=== PATIENT | female | born 1955 | race Caucasian/White ===

== ENCOUNTER → 2017-01-25 | Outpatient (CLI) | payer BC ==
--- NOTE | 2017-01-28 10:33 | MM ---
Reason for exam: screening (asymptomatic). Last mammogram was performed 3 years and 2 months ago. History: Patient is postmenopausal. Physical Findings: A clinical breast exam by your physician is recommended on an annual basis and results should be correlated with mammographic findings. MG Screening Mammo w CAD Bilateral CC and MLO view(s) were taken. Prior study comparison: November 18, 2013, bilateral MG screening mammo w CAD. September 23, 2012, bilateral digital screening mammo w/CAD. There are scattered fibroglandular densities. There is no discrete abnormality. ASSESSMENT: Negative, BI-RAD 1 RECOMMENDATION: Routine screening mammogram of both breasts in 1 year.
== END | disposition home or self-care (01) ==
LOC: RADMAMWWP 10:11
PROVIDERS: ATTEND Obstetrics & Gynecology
DX: Z12.31 Encounter for screening mammogram for malignant neoplasm of breast (principal)

== ENCOUNTER → 2018-10-30 | Outpatient (CLI) | payer BC ==
--- NOTE | 2018-11-04 09:39 | MM ---
Reason for exam: screening (asymptomatic). Last mammogram was performed 1 year and 9 months ago. History: Patient is postmenopausal. Physical Findings: A clinical breast exam by your physician is recommended on an annual basis and results should be correlated with mammographic findings. MG Screening Mammo w CAD Bilateral CC and MLO view(s) were taken. Prior study comparison: January 25, 2017, bilateral MG screening mammo w CAD. November 18, 2013, bilateral MG screening mammo w CAD. The breast tissue is heterogeneously dense. This may lower the sensitivity of mammography. No suspicious abnormality. No significant changes when compared with prior studies. ASSESSMENT: Negative, BI-RAD 1 RECOMMENDATION: Routine screening mammogram of both breasts in 1 year.
== END | disposition home or self-care (01) ==
LOC: RADMAMWWP 13:47
PROVIDERS: ATTEND Obstetrics & Gynecology
DX: Z12.31 Encounter for screening mammogram for malignant neoplasm of breast (principal)
CPT/HCPCS: 77067

== ENCOUNTER → 2020-05-19 | Outpatient (CLI) | payer MEDICARE ==
--- NOTE | 2020-05-20 14:50 | MM ---
Reason for exam: screening (asymptomatic). Last mammogram was performed 1 year and 7 months ago. History: Patient is postmenopausal. Took hormonal contraceptives for 30 years. Physical Findings: A clinical breast exam by your physician is recommended on an annual basis and results should be correlated with mammographic findings. MG 3D Screening Mammo W/Cad Bilateral CC and MLO view(s) were taken. Prior study comparison: October 30, 2018, bilateral MG screening mammo w CAD. January 25, 2017, bilateral MG screening mammo w CAD. There are scattered fibroglandular densities. There is no discrete abnormality. ASSESSMENT: Negative, BI-RAD 1 RECOMMENDATION: Routine screening mammogram of both breasts in 1 year.
== END | disposition home or self-care (01) ==
LOC: RADMAMWWP 11:12
PROVIDERS: ATTEND Internal Medicine Geriatric Medicine
DX: Z12.31 Encounter for screening mammogram for malignant neoplasm of breast (principal)
CPT/HCPCS: 77063; 77067

== ENCOUNTER → 2021-12-12 | Outpatient (CLI) | payer MEDICARE ==
--- NOTE | 2021-12-13 19:47 | MM ---
Reason for Exam: Screening (asymptomatic). Last mammogram was performed 1 year(s) and 7 month(s) ago. Patient History: Menarche at age 10. First Full-Term at age 21. Postmenopausal. Patient used Hormonal Contraceptives for 30 years. Risk Values: Bernarda 5 year model risk: 1.7%. NCI Lifetime model risk: 5.7%. Prior Study Comparison: 01/25/2017 Bilateral Screening Mammogram, [facility]. 10/30/2018 Bilateral Screening Mammogram, [facility]. 05/19/2020 Bilateral Screening Mammogram, [facility]. Tissue Density: There are scattered fibroglandular densities. Findings: Analyzed By CAD. There is no suspicious group of microcalcifications or new suspicious mass in either breast. Overall Assessment: Negative, BI-RAD 1 Management: Screening Mammogram of both breasts in 1 year. 1. Patient should continue monthly self breast exams. 2. A clinical breast exam by your physician is recommended on an annual basis. 3. This exam should not preclude additional follow-up of suspicious palpable abnormalities. Electronically signed and approved by: Fredy Moncada M.D. Radiologist
== END | disposition home or self-care (01) ==
LOC: RADMAMWWP 09:25
PROVIDERS: ATTEND Internal Medicine
DX: Z12.31 Encounter for screening mammogram for malignant neoplasm of breast (principal); Z78.0 Asymptomatic menopausal state
CPT/HCPCS: 77063; 77067

== ENCOUNTER → 2022-11-15 | Outpatient (CLI) | payer MEDICARE ==
--- NOTE | 2022-11-15 11:28 | XR ---
EXAMINATION TYPE: XR ankle complete RT DATE OF EXAM: 11/15/2022 COMPARISON: NONE HISTORY: Pain FINDINGS: Three views of the ankle demonstrate the ankle mortise to be intact and symmetric. The joint spaces are preserved. The osseous structures are intact. IMPRESSION: 1. No definite acute fracture or dislocation, if symptoms persist follow-up study in 7 to 10 days wou ld be suggested.
--- NOTE | 2022-11-15 11:30 | XR ---
EXAMINATION TYPE: XR foot complete RT DATE OF EXAM: 11/15/2022 COMPARISON: NONE HISTORY: Pain TECHNIQUE: Three views are submitted. FINDINGS: The osseous structures are intact. There is no acute fracture or dislocation. Moderate first MTP j oint arthropathy with tiny spur. Small calcaneal spur.. IMPRESSION: 1. Moderate first MTP joint arthropathy.
== END | disposition home or self-care (01) ==
LOC: RADXRMAIN 10:23
PROVIDERS: ATTEND Internal Medicine
DX: M19.071 Primary osteoarthritis, right ankle and foot (principal); M72.2 Plantar fascial fibromatosis

== ENCOUNTER → 2022-12-06 | Outpatient (CLI) | payer MEDICARE ==
[2022-12-06 18:23] LABS: Basophils # (A) 0.04 X 10*3/uL (0.00-0.10); Basophils % (A) 0.8 %; Eosinophils # (A) 0.11 X 10*3/uL (0.04-0.35); Eosinophils % (A) 2.3 %; HCT 46.9 % (37.2-46.3); Lymphocytes # (A) 1.66 X 10*3/uL (0.90-5.00); Lymphocytes % (A) 35.2 %; MCV 90.5 FL (80.0-97.0); Mean Platelet Volume 9.2 FL (9.5-12.2); Monocytes # (A) 0.42 X 10*3/uL (0.20-1.00); Monocytes % (A) 8.9 %; NRBC Per 100 WBC 0 X 10*3/uL (0.00-0.01); Neutrophils # (A) 2.48 X 10*3/uL (1.80-7.70); Neutrophils % (A) 52.6 %; Platelet Count 344 X 10*3/uL (140-440); RBC 5.18 X 10*6/uL (4.10-5.20); RDW 13.1 % (11.5-14.5); WBC 4.72 X 10*3/uL (4.50-10.00)
[2022-12-06 18:32] LABS: ALT 18 U/L (8-44); AST 16 U/L (13-35); Albumin 4.9 d/dL (3.8-4.9); Albumin/Globulin Ratio 2.33 Ratio (1.60-3.17); Alkaline Phosphatase 65 U/L (41-126); BUN/Creat Ratio 24.71 Ratio (12.00-20.00); Blood Urea Nitrogen 17.3 mg/dL (9.0-27.0); Calcium 10.3 mg/dL (8.7-10.3); Carbon Dioxide 25.4 mmol/L (21.6-31.8); Chloride 100 mmol/L (96-109); Chol/HDL Ratio 2.49 Ratio; Globulin 2.1 d/dL (1.6-3.3); Glucose 91 mg/dL (70-110); LDL Cholesterol,Calculated 110.2 mg/dL (0.0-131.0); Potassium 5.7 mmol/L (3.5-5.5); Sodium 135 mmol/L (135-145); Total Bilirubin 0.4 mg/dL (0.3-1.2); Uric Acid 3.5 mg/dL (2.9-7.7); VLDL Calculation 17.12 mg/dL (5.00-40.00)
== END | disposition home or self-care (01) ==
LOC: LABWHC1 10:17
PROVIDERS: ATTEND Internal Medicine
DX: I10 Essential (primary) hypertension (principal); M72.2 Plantar fascial fibromatosis
CPT/HCPCS: 36415; 80053; 80061; 84443; 84550; 85025

== ENCOUNTER → 2024-09-09 | Outpatient (CLI) | payer MEDICARE ==
--- NOTE | 2024-09-09 09:25 | MM ---
Reason for Exam: Screening (asymptomatic). Last mammogram was performed 1 year(s) and 7 month(s) ago. Patient History: Menarche at age 10. First Full-Term at age 21. Postmenopausal. Patient used Hormonal Contraceptives for 30 years. Risk Values: Bernarda 5 year model risk: 1.7%. NCI Lifetime model risk: 5.2%. Tissue Density: There are scattered areas of fibroglandular density. Findings: There is no suspicious group of microcalcifications or new suspicious mass in either breast. Overall Assessment: Negative, BI-RAD 1 Management: Screening Mammogram of both breasts in 1 year. . Patient should continue monthly self-breast exams. A clinical breast exam by your physician is recommended on an annual basis. This exam should not preclude additional follow-up of suspicious palpable abnormalities. Note on Bernarda scores and lifetime risk: 1. A Bernarda score greater than 3% is considered moderate risk. If this is the case, consider specialist referral to assess eligibility for a risk reducing agent. 2. If overall lifetime risk for the development of breast cancer is 20% or higher, the patient may qualify for future screening with alternating mammogram and breast MRI. [facility], , 09/09/2024 9:22 AM. Electronically signed and approved by: Yrn Fortune M.D.
== END | disposition home or self-care (01) ==
LOC: RADMAMWWP 08:13
PROVIDERS: ATTEND Internal Medicine
DX: Z12.31 Encounter for screening mammogram for malignant neoplasm of breast (principal); R92.323 Mammographic fibroglandular density, bilateral breasts; Z78.0 Asymptomatic menopausal state; Z92.0 Personal history of contraception
CPT/HCPCS: 77063; 77067